=== PATIENT | female | born 1995 | race Caucasian/White ===

== ENCOUNTER 2021-03-10 11:16 | Inpatient (IN) | payer BC, SELFPAY ==
[~2021-03-10 11:16] MED LIST: Iopamidol-370 76% 500 ML 1 ML ONE
[2021-03-10] MEDS ORDERED: Morphine 4 MG/ML VIAL ONE ×2 (12:25→15:20)
[2021-03-10] MEDS ORDERED: Ondansetron PF 4 MG/2 ML Vial ONE (12:25)
[2021-03-10] MEDS ORDERED: Pantoprazole 40 MG VIAL ONE (12:25)
[2021-03-10 12:33] LABS: #Basophils 0.1 thou/uL (0.0-0.2); #Lymphocytes 1.4 thou/uL (1.20-3.40); #Monocytes 1.7 thou/uL (0.11-0.59); #Neutrophils 8.5 thou/uL (1.40-6.50); %Basophils 0.5 % (0.0-1.0); %Eosinophils 0.1 % (0.0-10.0); %Lymphocytes 11.8 % (21.0-51.0); %Monocytes 14.7 % (0.0-10.0); %Neutrophils 72.8 % (42.0-75.0); Hemoglobin 15.4 g/dL (12.0-16.0); Mean Corpuscular HGB CONC 35.4 g/dL (32.0-36.0); Mean Corpuscular Hemoglobin 32.3 pg (27.0-31.0); Mean Corpuscular Volume 91.2 fL (78.0-98.0); Platelet Count 290 thou/uL (130-400); RBC Distribution Width 11.7 % (11.5-14.5); Red Blood Cell (RBC) Count 4.78 mill/uL (4.20-5.40); White Blood Cell (WBC) Count 11.7 thou/uL (4.8-10.8)
[2021-03-10 12:34] LABS: BHCG - Serum Negative (NEGATIVE); Pregs Control Background? CLEAR/WHITE (CLR/WHITE); Pregs Control Bar Appear? YES (CONTROL BAR)
[2021-03-10 12:57] LABS: ALT (SGPT) 10 U/L (8-55); AST (SGOT) 15 U/L (5-34); Albumin 5.3 g/dL (3.5-5.0); Alkaline Phosphatase 88 U/L (40-110); Anion Gap 21 mmol/L (10-20); BUN (Urea Nitrogen) 10 mg/dL (7.0-18.7); Bilirubin, Total 0.8 mg/dL (0.2-1.2); Calc. Creatinine Clearance 0 mL/min (70-130); Calcium 10.4 mg/dL (7.8-10.44); Carbon Dioxide 19 mmol/L (22-29); Chloride 102 mmol/L (98-107); Globulin 4.5 g/dL (2.4-3.5); Glucose 92 mg/dL (70-105); Lipase 12 U/L (8-78); Potassium 3.7 mmol/L (3.5-5.1); Protein, Total 9.8 g/dL (6.0-8.3); Sodium 138 mmol/L (136-145)
[2021-03-10] MEDS ORDERED: Prochlorperazine 10 MG/2 ML VIAL ONE (15:08)
[2021-03-10 17:20] LABS: Bacteria/HPF None Seen HPF (None Seen); Bilirubin Negative (Negative); Blood, Urine Trace (Negative); Clarity Clear (Clear); Glucose, Urine (Dipstick) Normal (Negative); Ketone, Urine Greater than 150 mg/dL (Negative); Leukocyte Negative Leu/uL (Negative); Nitrite Negative (Negative); Protein, Urine (Dipstick) 70 mg/dL (Neg-Trace); Urobilinogen Normal mg/dL (Less than 2)
[2021-03-10 17:23] LABS: Specific Gravity, Urine 1.047 (1.002-1.036)
[2021-03-10 17:36] LABS: Amphetamine Not Detected (NotDetected); Barbiturates Screen Not Detected (NotDetected); Benzodiazepine Screen Not Detected (NotDetected); Cocaine Metabolite Screen Not Detected (NotDetected); Methadone Not Detected (NotDetected); Methamphetamine Not Detected (NotDetected); Opiate Screen Detected (NotDetected); Oxycodone Screen Not Detected (NotDetected); Phencyclidine (PCP) Not Detected (NotDetected); THC/Cannabinoid Screen Detected (NotDetected); Tricyclic Screen Not Detected (NotDetected)
[2021-03-10 17:42] LABS: Acetaminophen Less than 6.0 mcg/mL (10.0-30.0); Alcohol Less than 10 mg/dL (Less than 10); Salicylate Less than 8.0 mg/dL (15.0-30.0)
[2021-03-10 18:04] LABS: SARS-CoV-2 NAA Rapid Test Not Detected (NotDetected)
[2021-03-10] MEDS ORDERED: Acetaminophen 325 MG TAB PO PRN ×2 (18:35→18:45)
[2021-03-10] MEDS ORDERED: Ondansetron ODT 4 MG TAB PO PRN (18:35)
[2021-03-10 18:42] VITALS: BMI 23.9
[2021-03-10] MEDS ORDERED: Ondansetron PF 4 MG/2 ML Vial IVP PRN (18:45)
[2021-03-10] MEDS ORDERED: Ondansetron ODT 4 MG TAB SL PRN (18:45)
[2021-03-10] MEDS ORDERED: Pantoprazole 40 MG VIAL IVP SCH (18:45)
[2021-03-10] MEDS ORDERED: Sodium Chloride 0.9% (PF) 10 ML VIAL FS PRN (18:45)
[2021-03-10] MEDS: Lactated Ringer's 1,000 ML IV SCH (19:20)
[2021-03-10] MEDS: Ondansetron PF 4 MG/2 ML Vial IVP PRN (22:03)
[2021-03-10] MEDS ORDERED: Morphine 2 MG/ML VIAL SLOW IVP SCH (22:30)
[2021-03-11] MEDS: Lactated Ringer's 1,000 ML IV SCH (03:37)
[2021-03-11 06:36] LABS: #Basophils 0.1 thou/uL (0.0-0.2); #Eosinphils 0.1 thou/uL (0.0-0.7); #Lymphocytes 2.4 thou/uL (1.20-3.40); #Neutrophils 4.1 thou/uL (1.40-6.50); %Basophils 0.9 % (0.0-1.0); %Eosinophils 1.3 % (0.0-10.0); %Lymphocytes 31.1 % (21.0-51.0); %Monocytes 13.6 % (0.0-10.0); %Neutrophils 53.2 % (42.0-75.0); Hemoglobin 12.1 g/dL (12.0-16.0); Mean Corpuscular HGB CONC 35.1 g/dL (32.0-36.0); Mean Corpuscular Hemoglobin 32.5 pg (27.0-31.0); Mean Corpuscular Volume 92.7 fL (78.0-98.0); Mean Platelet Volume 8.9 fL (7.4-10.4); Platelet Count 207 thou/uL (130-400); RBC Distribution Width 11.5 % (11.5-14.5); Red Blood Cell (RBC) Count 3.72 mill/uL (4.20-5.40); White Blood Cell (WBC) Count 7.7 thou/uL (4.8-10.8)
[2021-03-11 07:01] LABS: Anion Gap 12 mmol/L (10-20); BUN (Urea Nitrogen) 6 mg/dL (7.0-18.7); Calc. Creatinine Clearance 123 mL/min (70-130); Calcium 8.6 mg/dL (7.8-10.44); Carbon Dioxide 22 mmol/L (22-29); Chloride 107 mmol/L (98-107); Glucose 73 mg/dL (70-105); Potassium 3.5 mmol/L (3.5-5.1); Sodium 137 mmol/L (136-145)
[2021-03-11] MEDS: Ondansetron PF 4 MG/2 ML Vial IVP PRN ×2 (08:11→14:19)
[2021-03-11] MEDS: Pantoprazole 40 MG VIAL IVP SCH (08:33)
[2021-03-11] MEDS ORDERED: Sodium Chloride 0.9% 1,000 ML IV SCH (09:30)
[2021-03-11] MEDS: Ketorolac Tromethamine 30 MG/ML VIAL IVP PRN ×2 (11:36→18:42)
[2021-03-11] MEDS ORDERED: Scopolamine 1.5 mg/72 hour Patch ONE (13:04)
[2021-03-11] MEDS ORDERED: Promethazine HCl 25 MG/ML VIAL ONE (13:04)
[2021-03-11] MEDS ORDERED: PROPOFOL 200 MG/20 ML VIAL ONE (13:29)
[2021-03-11] MEDS ORDERED: Promethazine HCl 25 MG/ML VIAL IVPB PRN (13:49)
[2021-03-11] MEDS ORDERED: Promethazine HCl 25 MG/ML VIAL IM PRN (13:49)
[2021-03-11] MEDS ORDERED: Ondansetron HCl/PF 4 MG/2 ML Vial IVP PRN (13:49)
[2021-03-11] MEDS ORDERED: Morphine 2 MG/ML VIAL SLOW IVP SCH (14:30)
[2021-03-11] MEDS ORDERED: Scopolamine 1.5 mg/72 hour Patch TOP SCH (14:30)
[2021-03-11] MEDS ORDERED: Promethazine HCl 12.5 MG in Sodium Chloride 0.9% 50 ML IVPB SCH (19:15)
[2021-03-11] MEDS ORDERED: Promethazine HCl 25 MG/ML VIAL IVPB SCH ×2 (19:15)
[2021-03-12] MEDS: Ondansetron PF 4 MG/2 ML Vial IVP PRN ×2 (08:40→20:28)
[2021-03-12] MEDS: Pantoprazole 40 MG VIAL IVP SCH (08:41)
[2021-03-12] MEDS: Ketorolac Tromethamine 30 MG/ML VIAL IVP PRN ×3 (10:12→20:35)
[2021-03-12] MEDS ORDERED: Polyethylene Glycol 3350 17 GM Packet PO PRN (11:17)
[2021-03-12] MEDS ORDERED: Lidocaine 5% Patch TD SCH (14:15)
[2021-03-12] MEDS: Promethazine HCl 25 MG/ML VIAL FS SCH (14:44)
[2021-03-12] MEDS: Temazepam 15 MG CAP PO PRN (20:28)
[2021-03-12] MEDS: Transdermal Patch Removal TOP SCH (20:39)
[2021-03-13] MEDS: Ketorolac Tromethamine 30 MG/ML VIAL IVP PRN ×3 (02:40→20:15)
[2021-03-13] MEDS: Promethazine HCl 25 MG/ML VIAL FS SCH ×3 (02:40→20:16)
[2021-03-13] MEDS: Lidocaine 5% Patch TD SCH (08:58)
[2021-03-13] MEDS ORDERED: SUMAtriptan Succinate 6 MG/0.5 ML VIAL SC SCH (09:00)
[2021-03-13] MEDS ORDERED: Fleet Enema 133 ML BOT PR SCH (09:00)
[2021-03-13] MEDS: Pantoprazole 40 MG VIAL IVP SCH (09:03)
[2021-03-13] MEDS: Temazepam 15 MG CAP PO PRN (20:17)
[2021-03-13] MEDS: Transdermal Patch Removal TOP SCH (20:32)
[2021-03-14] MEDS: Ketorolac Tromethamine 30 MG/ML VIAL IVP PRN ×3 (06:09→19:39)
[2021-03-14] MEDS: Ondansetron PF 4 MG/2 ML Vial IVP PRN ×2 (06:10→19:40)
[2021-03-14 06:24] LABS: Hemoglobin 14.9 g/dL (12.0-16.0); Mean Corpuscular HGB CONC 34.2 g/dL (32.0-36.0); Mean Corpuscular Hemoglobin 30.9 pg (27.0-31.0); Mean Corpuscular Volume 90.4 fL (78.0-98.0); Mean Platelet Volume 8.8 fL (7.4-10.4); Platelet Count 258 thou/uL (130-400); RBC Distribution Width 11.6 % (11.5-14.5); Red Blood Cell (RBC) Count 4.82 mill/uL (4.20-5.40); White Blood Cell (WBC) Count 10.5 thou/uL (4.8-10.8)
[2021-03-14 06:39] LABS: Lymphocytes 42 % (21-51); MDiff Complete? YES; Monocytes 16 % (0-10); Neutrophil 42 % (42-75); Platelet Morphology Comment Appears Adequate; RBC Morphology Normal
[2021-03-14 06:44] LABS: ALT (SGPT) Less than 7 U/L (8-55); AST (SGOT) 11 U/L (5-34); Albumin 4.6 g/dL (3.5-5.0); Alkaline Phosphatase 72 U/L (40-110); Anion Gap 15 mmol/L (10-20); BUN (Urea Nitrogen) 11 mg/dL (7.0-18.7); Bilirubin, Total 0.9 mg/dL (0.2-1.2); Calc. Creatinine Clearance 92 mL/min (70-130); Calcium 9.6 mg/dL (7.8-10.44); Carbon Dioxide 21 mmol/L (22-29); Chloride 105 mmol/L (98-107); Globulin 3.6 g/dL (2.4-3.5); Glucose 99 mg/dL (70-105); Lipase 39 U/L (8-78); Protein, Total 8.2 g/dL (6.0-8.3); Sodium 138 mmol/L (136-145)
[2021-03-14 06:46] LABS: Potassium 2.6 mmol/L (3.5-5.1)
[2021-03-14] MEDS ORDERED: Electrolyte Replacement Protocol FS PRN (07:00)
[2021-03-14] MEDS ORDERED: Potassium Chloride 40 MEQ in Sodium Chloride 0.9% 250 ML 250 ML IVPB SCH (07:15)
[2021-03-14] MEDS ORDERED: Potassium Chloride 20 MEQ TAB PO SCH (08:15)
[2021-03-14] MEDS: Potassium Chloride 40 MEQ in Sodium Chloride 0.9% 250 ML 250 ML IVPB SCH ×2 (08:51→13:17)
[2021-03-14] MEDS: Lidocaine 5% Patch TD SCH (08:52)
[2021-03-14] MEDS: Pantoprazole 40 MG VIAL IVP SCH (08:59)
[2021-03-14] MEDS: Acetaminophen 650 MG Suppository PR PRN (09:03)
[2021-03-14] MEDS ORDERED: Fleet Enema 133 ML BOT PR SCH (11:00)
[2021-03-14] MEDS: Promethazine HCl 12.5 MG in Sodium Chloride 0.9% 50 ML IVPB PRN (13:06)
[2021-03-14] MEDS: Temazepam 15 MG CAP PO PRN (19:40)
[2021-03-14 21:12] LABS: Potassium 3.1 mmol/L (3.5-5.1)
[2021-03-14] MEDS: Transdermal Patch Removal TOP SCH (22:00)
[2021-03-15] MEDS ORDERED: Potassium Chloride 20 MEQ TAB PO SCH ×2 (01:00→11:00)
[2021-03-15] MEDS: Promethazine HCl 12.5 MG in Sodium Chloride 0.9% 50 ML IVPB PRN (03:08)
[2021-03-15] MEDS: Ketorolac Tromethamine 30 MG/ML VIAL IVP PRN ×2 (03:09→10:01)
[2021-03-15 03:22] VITALS: TEMP 98.2
[2021-03-15 08:38] LABS: #Basophils 0.1 thou/uL (0.0-0.2); #Lymphocytes 1.3 thou/uL (1.20-3.40); #Monocytes 1.3 thou/uL (0.11-0.59); #Neutrophils 7.4 thou/uL (1.40-6.50); %Basophils 0.6 % (0.0-1.0); %Eosinophils 0.4 % (0.0-10.0); %Lymphocytes 12.5 % (21.0-51.0); %Monocytes 12.6 % (0.0-10.0); %Neutrophils 73.9 % (42.0-75.0); Hemoglobin 14.2 g/dL (12.0-16.0); Mean Corpuscular HGB CONC 34.9 g/dL (32.0-36.0); Mean Corpuscular Hemoglobin 31.8 pg (27.0-31.0); Mean Platelet Volume 9.3 fL (7.4-10.4); Platelet Count 230 thou/uL (130-400); RBC Distribution Width 11.7 % (11.5-14.5); Red Blood Cell (RBC) Count 4.46 mill/uL (4.20-5.40)
[2021-03-15 08:45] LABS: ALT (SGPT) Less than 7 U/L (8-55); AST (SGOT) 12 U/L (5-34); Albumin 4.3 g/dL (3.5-5.0); Alkaline Phosphatase 68 U/L (40-110); Anion Gap 14 mmol/L (10-20); BUN (Urea Nitrogen) 10 mg/dL (7.0-18.7); Bilirubin, Total 0.7 mg/dL (0.2-1.2); Calc. Creatinine Clearance 88 mL/min (70-130); Calcium 9.4 mg/dL (7.8-10.44); Carbon Dioxide 21 mmol/L (22-29); Chloride 106 mmol/L (98-107); Globulin 3.5 g/dL (2.4-3.5); Glucose 99 mg/dL (70-105); Lipase 30 U/L (8-78); Potassium 3.4 mmol/L (3.5-5.1); Protein, Total 7.8 g/dL (6.0-8.3); Sodium 138 mmol/L (136-145)
[2021-03-15] MEDS: Potassium Chloride 20 MEQ/100 ML PREMIX BAG IVPB SCH ×2 (09:58→11:22)
[2021-03-15] MEDS: Pantoprazole 40 MG VIAL IVP SCH (10:01)
[2021-03-15] MEDS: Ondansetron PF 4 MG/2 ML Vial IVP PRN (10:06)
[2021-03-15] MEDS: Lidocaine 5% Patch TD SCH (11:05)
[2021-03-15] MEDS: Acetaminophen 650 MG Suppository PR PRN ×2 (11:17→16:20)
[2021-03-15] MEDS ORDERED: Potassium Chloride 40 MEQ in Sodium Chloride 0.9% 250 ML 250 ML IVPB SCH (12:00)
[2021-03-15 15:46] VITALS: BP 146/98
== END 2021-03-15 16:39 | disposition home or self-care (01) | DRG 395 ==
LOC: ERS 11:16 → T4-A 17:18 → OBSVTOIN 03-12 09:18
PROVIDERS: ADMIT Internal Medicine; ATTEND Internal Medicine
PROC: 0DJ08ZZ Inspection of Upper Intestinal Tract, Via Natural or Artificial Opening Endoscopic (ICD-10-PCS; principal; 2021-03-11)
DX: R11.15 Cyclical vomiting syndrome unrelated to migraine (principal); Z20.822 Contact with and (suspected) exposure to COVID-19; E87.6 Hypokalemia; F12.10 Cannabis abuse, uncomplicated; K44.9 Diaphragmatic hernia without obstruction or gangrene; E86.0 Dehydration; K59.00 Constipation, unspecified; Z83.3 Family history of diabetes mellitus; Z71.51 Drug abuse counseling and surveillance of drug abuser
CPT/HCPCS: 0241U; 36415; 74177; 78227; 80048; 80053; 80306; 80307; 81003; 81015; 82010; 83605; 83690; 84703; 85025; 96365; 96375; 96376; A9541; C9113; G0378; J0780; J1885; J2270; J2405; J2550; J2704; J3030; J3480; J7050; Q0162; Q9967